=== PATIENT | male | born 1940 | race Caucasian/White ===

== ENCOUNTER 2018-07-11 05:26 | Day surgery (SDC) | payer OTHER, BC ==
[~2018-07-11] VITALS: Ht 170.2 cm; Wt 82.4 kg
--- NOTE | ~2018-07-11 | O ---
[facility] [place] [address] OPERATIVE REPORT Name: EVIE BRANDON Room #: DEP [facility]#: [id number] Admission: 07/11/18 Attend Phys: Trevor Groves MD Discharge: 07/11/18 Date of : 44 Report #: [id number] THIS REPORT FOR: //name// CC: Christ Brown DATE OF SERVICE: 07/11/2018 PREOPERATIVE DIAGNOSES: 1. Tumor of lateral right lower lid, presumably basal cell carcinoma. 2. Tumor of medial right lower lid and cheek, questionable basal cell carcinoma. POSTOPERATIVE DIAGNOSES: 1. Basal cell carcinoma of lateral right lower lid. 2. Right lower lid and cheek lesion of indeterminate pathology. PROCEDURES: 1. Excision of basal cell carcinoma of lateral right lower lid with myocutaneous flap repair of defect and lid margin. 2. Excision of lesion of medial right lower lid and cheek with myocutaneous flap repair of defect. SURGEON: Trevor Groves M.D. PAN TANK WORKER: None. ANESTHESIA: MAC. COMPLICATIONS: None. INDICATIONS FOR SURGERY: This pleasant 77-year-old gentleman has 2 separate lesions in his right lower lid that appears to potentially be neoplastic. He has a laterally based lesion in the right lower lid that appears to be a classic basal cell carcinoma on the lid margin. He has a medially located lesion over the nasojugal fold in the medial right lower lid extending on to the cheek that appears to potentially be a nodular basal cell carcinoma. He presents today for excision of both lesions with frozen sections and repair of the ensuing defect. Informed consent was obtained to include but not limited to the potential risk for loss of vision, bleeding, infection, failure to improve the problem, and the potential need for further surgery or treatment. DESCRIPTION OF PROCEDURE: The patient was taken to the operating room where 2% Xylocaine with epinephrine mixed with equal parts 0.75% Marcaine with W[place] was [address] [address] OPERATIVE REPORT Name: EVIE BRANDON Room #: DEP [facility]..#: [id number] Admission: 07/11/18 Attend Phys: Trevor Groves MD Discharge: 07/11/18 Date of : 44 Report #: [id number] administered transcutaneously and transconjunctivally to the right lower lid, the right lateral canthus, the right cheek, the right infratemporal fossa and the right side of the nose. The patient was subsequently prepped and draped in the usual sterile fashion. Attention was then first turned to the lateral right lower lid lesion. A large pentagon wedge resection was then outlined including 1-2 mm of normal appearing tissue around the lesion's margin. The incisions were then made perpendicularly across the eyelid margin and drawn down to a point in the premalar tissues. Hemostasis was achieved with diligent pinpoint monopolar cautery. The waiting pathologist was oriented to the specimen. She snap froze that specimen and found that it was indeed a basal cell carcinoma and the margins were clear. A myocutaneous flap was then developed laterally and rotated into position medially. Hemostasis was then re-achieved. The flap was secured with multiple interrupted buried 5-0 Vicryl sutures deep. 5-0 Vicryl sutures were also used to reapproximate the tarsal plate. A 7-0 Vicryl sutures were then used to reapproximate the eyelid margin. Buried Vicryl sutures were used more superficially down on to the cheek and 6-0 plain gut sutures used more superficially for final closure. The medially based right lower lid lesion that was in the nasojugal fold was then incised in an elliptical fashion parallel to the nasojugal fold. It paralleled the angular artery. This tissue was then passed off to the pathologist for frozen sections. Hemostasis was achieved in the field. The pathologist snap froze that tissue, but was unsure of the specific clinical diagnosis. She was not even sure if the lesion was malignant. With that information, the decision was made to close that wound with a flap, but not to take further frozen sections. That flap was then developed and rotated into position mobilizing tissue from a more medially located location. Hemostasis was re-achieved. The flap was closed with interrupted 6-0 plain gut sutures. The wounds were then cleaned and dressed with erythromycin ophthalmic ointment. The patient was subsequently transported to the recovery area having tolerated the procedures well with no anesthetic or operative complications being noted. <ELECTRONICALLY SIGNED> By: Trevor Groves MD 07/15/18 0622 [id number] [id number] Trevor Groves MD /nt
--- NOTE | ~2018-07-11 | PATH ---
[facility] [address] [address] PATHOLOGY RPT PROCEDURE Name: EVIE BRANDON Room #: DEP [facility]..#: [id number] Admission: 07/11/18 Date of : 44 Discharge: 07/11/18 Report #: [id number] Path Case #: [id number] [facility] Accession Number: [id number] . 01 Material submitted: . PART A: TUMOR RIGHT LOWER LID - FS PART B: MEDIAL RIGHT CHEEK LESION - FS . 01 Clinical history: . Medial right lower lid cheek lesion/lateral right lower lid lesion. . 02 Diagnosis: A. Skin, tumor right lower lid, excision: - BASAL CELL CARCINOMA. - Margins of resection free of malignancy. . B. Skin, medial right cheek lesion, excision: - BASAL CELL CARCINOMA, NODULAR SUBTYPE WITH FOCAL CYST FORMATION. - LESION EXTENDS TO ALL LATERAL MARGINS SAMPLED. - Deep margin free of malignancy. . (IUV:mml; 07/15/18) QLM/07/15/2018 . 02 Comment: The biopsy tissue "medial right cheek lesion" was co-reviewed by Dr. Zonia Fernandez (board certified dermatopathologist). The findings of this case are discussed with Dr. Trevor Groves at approximately 9:30 a.m. on 07/15/18. . (IUV:mml; 07/15/18) . 02 Electronically signed: . Laurie Saleh MD, Pathologist NPI- [id number] . 02 Gross description: . A. Received fresh from the OR labeled with the patient's name, and "tumor right lower lid" consists of a triangular excision of skin measuring approximately 1.1 x 0.7 x 0.3 cm. The specimen is assigned medial, inferior and lateral. At this point the specimen is assigned 3:00 at medial, 6:00 at inferior, and 9:00 at lateral. The specimen is inked as follows: 12:00 to 3:00 to inferior (12:00 is the superior or base of the triangle). The 12:00 to 3:00 to 6:00 is inked black, 6:00 to 9:00 is inked blue and 9:00 to 12:00 is inked green. At this point the specimen is serially sectioned and entirely submitted for frozen sections as FSA1, subsequently submitted for permanent sections as A1. [address] [address] PATHOLOGY RPT PROCEDURE Name: EVIE BRANDON Matt Room #: DEP [facility] [place] Mohini#: [id number] Admission: 07/11/18 Date of : 44 Discharge: 07/11/18 Report #: [id number] Path Case #: [id number] . B. Received fresh from the OR labeled with the patient's name, and "medial right cheek lesion" consists of an ellipse of skin measuring 0.8 x 0.3 x 0.3 cm. The specimen is assigned superior, medial, inferior and lateral, these are further designated 12:00, 3:00, 6:00 and 9:00 for inking. The 12:00 to 3:00 to 6:00 is inked black. The 6:00 to 9:00 is inked blue and the 9:00 to 12:00 is inked green. At this point the specimen is serially sectioned and entirely submitted frozen sections as FSB1. This is subsequently submitted for permanent sections as B1. (IUV/db; 07/12/18) . Frozen Section Diagnosis: (Laurie Saleh M.D.) . FSA1. Tumor right lower lid - superior, excision: - Basal cell carcinoma, margins free. . FSB1. Medial right cheek lesion, excision: - Squamoproliferative lesion extends to all margins sampled. . These findings are discussed with Dr. Trevor Groves in OR6 and a written report is placed in the patient's chart. . . Frozen section performed at [facility], [address] [place] [address], [place] [address]. IZV/SYC . 02 Pathologist provided ICD-10: C44.1122, C44.319 . 02 CPT . 851059, 341718, 027207, 732933 Specimen Comment: A courtesy copy of this report has been sent to Specimen Comment: [phone], . Specimen Comment: Report sent to / DR LANGSTON Specimen Comment: A duplicate report has been generated due to demographic updates. Performed at: [address], [place], [place] [id number] MD Juan Barakat MD Phone: [phone] Performed at: [address] [facility] [address] [id number] MD Laurie Saleh MD Phone: [phone]
[~2018-07-11 05:26] MED LIST: ASPIR 8181 MG PO; ATIVAN0.5 MG PO; LISINOPRIL20 MG PO; TIMOLOL MALEATE5 ML OPHTHALMIC; ZANTAC 150MG T150 MG PO; ZOCOR20 MG PO
[2018-07-11 12:20] VITALS: BP 161/74
== END 2018-07-11 14:59 | disposition home or self-care (01) ==
LOC: TBA 05:26 → OR 05:26
DX: C44.1122 Basal cell carcinoma of skin of right lower eyelid, including canthus (principal); C44.319 Basal cell carcinoma of skin of other parts of face; Z87.891 Personal history of nicotine dependence; I10 Essential (primary) hypertension; E78.5 Hyperlipidemia, unspecified; K21.9 Gastro-esophageal reflux disease without esophagitis; Z98.41 Cataract extraction status, right eye; Z85.46 Personal history of malignant neoplasm of prostate; Z98.42 Cataract extraction status, left eye; Z98.890 Other specified postprocedural states; Z79.899 Other long term (current) drug therapy; Z79.82 Long term (current) use of aspirin
CPT/HCPCS: 50010; 50101; 50386; 50398; 51636; 56528; 56531; 62110; 62850; 70005